=== PATIENT | female | born 1955 | race Caucasian/White ===

== ENCOUNTER 2020-01-19 09:56 | Outpatient (CLI) | payer MEDICARE ==
--- NOTE | 2020-01-19 11:10 | RAD ---
LUMBAR SPINE SERIES 3 VIEWS: Date: 01/19/2020 HISTORY: Right leg and chronic back pain. FINDINGS: These are flexion and extension, as well as neutral views of the spine. There are fairly pronounced a rthritic changes. Degenerative osteophytes along the course of the spine and disc narrowing which is most pronounced at the L3-4 and L4-5 levels. There is limited motion in either the flexion or extensi on views. No spondylolisthesis. IMPRESSION: Moderate arthritic changes of the spine. POS: [facility]
--- NOTE | 2020-01-19 12:30 | MRI ---
MRI LUMBAR SPINE PERFORMED WITHOUT CONTRAST ENHANCEMENT: Date: 01/19/2020 HISTORY: Chronic back pain and right leg pain. FINDINGS: Vertebral bodies are normal in height. There is marked disc narrowing at the L3-4 and L4-5 levels. Th ere is no significant periaortic adenopathy. Small T2 hyperintense area within the left kidney is mos t likely a cyst. T12-L1: Unremarkable. L1-2: Degenerative facet changes are seen without canal or foraminal stenosis. L2-3: Degenerative facet changes without canal or foraminal narrowing. L3-4: There is a disc bulge at this level. There are facet and ligamentous hypertrophic changes. The canal shows mild stenosis. Disc changes show a small right lateral disc protrusion at the L3-4 level and there is mild to moderate foraminal narrowing associated with this. L4-5: There is a left paracentral disc protrusion which appears to have a small associated extrusion . This causes moderately severe canal stenosis and impression on the left L5 nerve root. There is mil d to moderate right and mild left foraminal narrowing. L5-S1: Degenerative facet changes are present at this level without significant canal or foraminal s tenosis. IMPRESSION: 1. Small right lateral disc protrusion at L3-4 with mild to moderate right foraminal narrowing. 2. Large left paracentral disc protrusion/extrusion at the L4-5 level causing moderately severe rinku l stenosis. There is impression on the left L5 nerve root. POS: [facility]
== END 2020-01-19 09:57 | disposition home or self-care (01) ==
LOC: TBSIIMAG 09:56
PROVIDERS: ATTEND Surgery
DX: M54.5 Low back pain (principal); M79.606 Pain in leg, unspecified; M48.061 Spinal stenosis, lumbar region without neurogenic claudication; M51.26 Other intervertebral disc displacement, lumbar region; M46.96 Unspecified inflammatory spondylopathy, lumbar region
CPT/HCPCS: 72100; 72148